=== PATIENT | female | born 1975 ===

== ENCOUNTER 2018-09-11 08:10 | Outpatient (CLI) | payer OTHER | END 2018-09-11 08:11 | disposition home or self-care (01) | LOC: C.LAB 08:10 | DX: R10.9 Unspecified abdominal pain (principal); R73.01 Impaired fasting glucose; R31.9 Hematuria, unspecified ==

== ENCOUNTER 2018-09-29 08:40 | Outpatient (CLI) | payer OTHER | END 2018-09-29 08:41 | disposition home or self-care (01) | LOC: C.USIC 08:41 | DX: R10.9 Unspecified abdominal pain (principal) ==